=== PATIENT | male | born 1980 | race Two or more races ===

== ENCOUNTER 2018-11-13 16:31 | Outpatient (CLI) | payer OTHER | END 2018-11-13 16:43 | disposition home or self-care (01) | LOC: RAD 16:31 | DX: M25.551 Pain in right hip (principal); M25.552 Pain in left hip ==

== ENCOUNTER 2022-03-05 12:33 | Outpatient (CLI) | payer OTHER | END 2022-03-05 12:41 | disposition home or self-care (01) | LOC: LAB 12:33 | PROVIDERS: ATTEND Obstetrics & Gynecology | DX: Z20.828 Contact with and (suspected) exposure to other viral communicable diseases (principal); Z20.818 Contact with and (suspected) exposure to other bacterial communicable diseases ==

== ENCOUNTER 2022-11-04 14:51 | Outpatient (CLI) | payer OTHER | END 2022-11-04 15:22 | disposition home or self-care (01) | LOC: RAD 14:51 | PROVIDERS: ATTEND Orthopaedic Surgery | DX: M25.511 Pain in right shoulder (principal); M79.641 Pain in right hand ==

== ENCOUNTER 2022-11-30 10:21 | Outpatient (CLI) | payer OTHER | END 2022-11-30 11:18 | disposition home or self-care (01) | LOC: SONOGRAMA 10:21 | PROVIDERS: ATTEND Orthopaedic Surgery | DX: M79.641 Pain in right hand (principal); M25.511 Pain in right shoulder; M75.41 Impingement syndrome of right shoulder ==

== ENCOUNTER 2023-04-04 08:52 | Outpatient (CLI) | payer OTHER | END 2023-04-04 09:15 | disposition home or self-care (01) | LOC: RAD 08:52 | PROVIDERS: ATTEND Physical Medicine & Rehabilitation | DX: M25.561 Pain in right knee (principal) ==

== ENCOUNTER 2023-07-11 14:13 | Emergency (ER) | payer OTHER ==
[~2023-07-11] VITALS: Ht 167.6 cm; Wt 68.0 kg
[2023-07-11 16:54] LABS: HEMATOCRIT 42.1 % (39.0-48.0); HEMOGLOBIN 14.2 g/dL (13-16.00); MEAN CELL VOLUME 80.9 fL (80.0-100.00); MEAN CORPUSCULAR HEMOGLOBIN 27.2 pg (27.00-32.0); MEAN CORPUSCULAR HGB CONC 33.7 g/dl (32.0-36.0); PLATELET COUNT 143 K/uL (150-450); RED BLOOD COUNT 5.21 M/uL (4.00-6.00); RED CELL DISTRIBUTION WIDTH 13.9 % (11.5-14.5)
[2023-07-11 17:17] LABS: BILIRUBIN TOTAL 0.41 mg/dL (0.3-1.2); CALCIUM 8.9 mg/dL (8.5-10.1); CREATININE SERUM 1.49 mg/dL (0.70-1.30); GFR 51.72; GLOBULINA 3.3 G/DL (2.4-3.5); POTASSIUM 4.2 mEq/L (3.5-5.1); TOTAL PROTEIN 7.3 gm/dL (6.4-8.2)
[2023-07-11 17:27] LABS: PH,URINE 6.5 (5.0-8.0); URINE APPEARANCE Clear; URINE BILIRRUBIN Negative (NEGATIVE); URINE BLOOD Negative; URINE COLOR Yellow; URINE GLUCOSE Negative (NEGATIVE); URINE LEUKOCYTE Negative; URINE NITRATE Negative; URINE PROTEIN Negative (NEGATIVE); URINE UROBILINOGEN 0.2 E.U./dl
[2023-07-11 17:53] LABS: URINE BACTERIA 1.2 uL (0.0-1933); URINE RBC 0.4 uL (0.0-20.8); URINE WBC 0.2 uL (0.0-23.2)
== END 2023-07-11 19:17 | disposition home or self-care (01) ==
LOC: ER 14:13
PROVIDERS: General Practice
DX: B34.9 Viral infection, unspecified (principal); Z20.822 Contact with and (suspected) exposure to COVID-19

== ENCOUNTER 2023-07-19 12:27 | Emergency (ER) | payer OTHER ==
[~2023-07-19] VITALS: Ht 170.2 cm; Wt 72.6 kg
[2023-07-19 18:14] LABS: HEMATOCRIT 45.2 % (39.0-48.0); HEMOGLOBIN 15.4 g/dL (13-16.00); MEAN CELL VOLUME 81.4 fL (80.0-100.00); MEAN CORPUSCULAR HEMOGLOBIN 27.7 pg (27.00-32.0); PLATELET COUNT 329 K/uL (150-450); RED BLOOD COUNT 5.56 M/uL (4.00-6.00); RED CELL DISTRIBUTION WIDTH 13.4 % (11.5-14.5)
[2023-07-19 18:40] LABS: ALBUMIN 4.1 gm/dL (3.4-5.0); BILIRUBIN TOTAL 0.3 mg/dL (0.3-1.2); CALCIUM 9.2 mg/dL (8.5-10.1); CREATININE SERUM 1.2 mg/dL (0.70-1.30); GFR 66.4; GLOBULINA 3.9 G/DL (2.4-3.5); POTASSIUM 4.35 mEq/L (3.5-5.1)
== END 2023-07-19 20:18 | disposition home or self-care (01) ==
LOC: ER 12:27
PROVIDERS: General Practice
DX: R53.81 Other malaise (principal); T50.905A Adverse effect of unspecified drugs, medicaments and biological substances, initial encounter

== ENCOUNTER 2025-06-18 09:14 | Emergency (ER) | payer OTHER ==
[~2025-06-18] VITALS: Ht 170.2 cm; Wt 70.3 kg
[2025-06-18] MEDS ORDERED: KETOROLAC TROMETHAMINE 15 MG VIAL IV ONE (10:45)
[2025-06-18] MEDS ORDERED: 0.9 % SODIUM CHLORIDE 1,000 ML IV ONE (10:45)
[2025-06-18] MEDS ORDERED: METOCLOPRAMIDE HCL 5 MG/ML VIAL IV ONE (10:45)
[2025-06-18 12:37] LABS: BASO % 0.2 % (0.1-1.2); EOS # 0.02 (0.04-0.54); EOS % 0.4 % (0.7-7.0); LYMPH # 0.91 (1.18-3.74); LYMPH % 17.0 % (19.3-53.1); MEAN PLATELET VOLUME 10.50 fl (9.4-12.4); MONO # 0.47 (0.24-0.82); MONO % 8.8 % (4.7-12.5); NEUT # 3.92 (1.56-6.13); NEUT % 73.2 % (34.0-71.1); RED CELL DISTRIBUTION WIDTH 12.3 % (11.6-14.4)
[2025-06-18 12:46] LABS: URINE APPEARANCE Clear; URINE BILIRRUBIN Negative (NEGATIVE); URINE BLOOD Negative; URINE COLOR Yellow; URINE GLUCOSE Negative (NEGATIVE); URINE KETONE Negative (NEGATIVE); URINE LEUKOCYTE Negative; URINE NITRATE Negative; URINE PROTEIN Negative (NEGATIVE); URINE UROBILINOGEN 0.2 E.U./dl
[2025-06-18 12:50] LABS: URINE RBC 4.6 uL (0.0-20.8)
[2025-06-18 13:06] LABS: URINE BACTERIA 0 uL (0.0-1933); URINE CAST 0.00 uL (0.0-1.40); URINE EPITHELIAL CELLS 0.0 uL (0.0-38.8); URINE WBC 0.3 uL (0.0-23.2)
[2025-06-18 13:11] LABS: COVID-19 AG NEGATIVE (NEGATIVE)
[2025-06-18 13:21] LABS: ALT/SGPT 27 U/L (12-78); AST/SGOT 16 U/L (15-37); BILIRUBIN TOTAL 0.25 mg/dL (0.3-1.2); BILIRUBIN,CONJUGATED < 0.10 mg/dL (0.0-0.2); BUN CREA RATIO 8 (7.0-25.0); CREATININE SERUM 1.14 mg/dL (0.70-1.30); GFR 69.78; GLUCOSE FASTING 119 mg/dL (65-100); OSMOLALITY SERUM 281 MOSM/KG (275-295)
== END 2025-06-18 15:15 | disposition home or self-care (01) ==
LOC: ER 09:14
PROVIDERS: Emergency Medicine
DX: R51.9 Headache, unspecified (principal); R50.9 Fever, unspecified; Z20.822 Contact with and (suspected) exposure to COVID-19; Z88.5 Allergy status to narcotic agent